=== PATIENT | female | born 1965 | race Caucasian/White ===

== ENCOUNTER 2020-07-27 13:11 | Inpatient (IN) ==
[2020-08-17] MEDS ORDERED: Naloxone 0.4 MG/ML INJ IVP PRN (09:45)
[2020-08-17] MEDS ORDERED: Acetaminophen 325 MG TABLET PO PRN (09:45)
[2020-08-17 10:31] LABS: Basophils # 0.1 K/mcL (0.0-0.2); Basophils % 0.8 %; Eosinophils # 0.2 K/mcL (0.0-0.6); Eosinophils % 3.7 %; Hematocrit 39.6 % (35.3-44.9); Hemoglobin 12.9 g/dL (11.5-15.4); Immature Granulocytes % 0.5 % (0-4); Lymphocytes # 1.2 K/mcL (0.6-4.6); Lymphocytes % 18.9 %; Mean Corpuscular HGB Conc 32.6 g/dL (31.6-35.5); Mean Corpuscular Hemoglobin 29.4 pg (28.0-33.3); Mean Corpuscular Volume 90.2 fL (83.0-100.0); Monocytes # 0.4 K/mcL (0.0-1.3); Monocytes % 5.8 %; Neutrophils # 4.6 K/mcL (1.6-8.9); Platelet Count 247 K/mcL (140-400); Red Blood Count 4.39 M/mcL (3.82-4.97); Red Cell Distribution Width 12.9 % (11.5-14.5); Segmented Neutrophils % 70.3 %; White Blood Count 6.5 K/mcL (4.3-11.1)
[2020-08-17 10:51] LABS: BUN/Creatinine Ratio 14 (6-26); Blood Urea Nitrogen 15 mg/dL (6-20); Calcium 9.6 mg/dL (8.6-10.3); Carbon Dioxide 22 mEq/L (23-29); Chloride 107 mEq/L (98-107); Glucose 114 mg/dL (70-105); Osmolality,Calculated 288 (280-300); Potassium 3.5 mEq/L (3.5-5.1); Sodium 138 mEq/L (136-145); eGFR For African Americans > 60 (> 60); eGFR For Non-African Americans 55 (> 60)
[2020-08-17] MEDS ORDERED: tiZANidine 4 MG TABLET PO PRN (13:06)
[2020-08-17] MEDS ORDERED: Ibuprofen 600 MG TABLET PO PRN (13:06)
[2020-08-17] MEDS: *HR* HYDROcodone/Acet 5/325 mg TABLET PO PRN ×2 (15:50→21:01)
[2020-08-17] MEDS: *HR* Rivaroxaban 10 MG TABLET PO SCH (17:38)
[2020-08-17] MEDS: lisinopriL 20 MG TABLET PO SCH (20:58)
[2020-08-17] MEDS: Cholecalciferol (D-3) 1,000 UNIT (25MCG) TABLET PO SCH (20:58)
[2020-08-17] MEDS: Topiramate 25 MG TABLET PO SCH (20:59)
[2020-08-17] MEDS: DilTIAZem CD (24hr) 120 MG CAP.ER.24H PO SCH (21:07)
[2020-08-18] MEDS: *HR* Rivaroxaban 10 MG TABLET PO SCH (17:32)
[2020-08-18] MEDS: Cholecalciferol (D-3) 1,000 UNIT (25MCG) TABLET PO SCH (20:21)
[2020-08-18] MEDS: DilTIAZem CD (24hr) 120 MG CAP.ER.24H PO SCH (20:21)
[2020-08-18] MEDS: lisinopriL 20 MG TABLET PO SCH (20:21)
[2020-08-18] MEDS: Topiramate 25 MG TABLET PO SCH (20:22)
[2020-08-19 19:14] VITALS: BP 159/86
== END 2020-08-19 20:15 | disposition home or self-care (01) | DRG 310 ==
LOC: 3BNU → OBSVTOIN 08-17 09:42
PROVIDERS: ADMIT Internal Medicine Clinical Cardiac Electrophysiology; ATTEND Internal Medicine Clinical Cardiac Electrophysiology